=== PATIENT | male | born 1965 | race Caucasian/White ===

== ENCOUNTER 2017-06-28 05:30 | Outpatient (CLI) | payer OTHER ==
[~2017-06-28] VITALS: Ht 185.4 cm; Wt 97.5 kg
== END 2017-06-28 09:39 ==
LOC: PREOP 05:30
PROVIDERS: ATTEND Surgery
DX: Z01.818 Encounter for other preprocedural examination (principal); Z12.11 Encounter for screening for malignant neoplasm of colon

== ENCOUNTER 2017-07-03 07:22 | Day surgery (SDC) | payer OTHER ==
[~2017-07-03] VITALS: Ht 185.4 cm; Wt 97.5 kg
--- OUTSIDE RECORDS SUMMARY | 2017-07-03 07:26 | XMS REPORT | Continuity of Care Document ---
Author Author [facility] Address Unknown Phone Unavailable Allergies Medications Problems Procedures Results Encounters ACCT No. Visit Date/Time Discharge Status Pt. Type Provider Facility Loc./Unit Complaint [id number] 10/20/2014 16:34:15 10/20/2014 23: 59:59 CLS Outpatient Amirah Ford
[2017-07-03] MEDS ORDERED: LACTATED RINGERS 1,000 ML IV STA (07:29)
[2017-07-03] MEDS ORDERED: PROPOFOL INJECTION 50 ML IV ONE (07:30)
[2017-07-03] MEDS ORDERED: MIDAZOLAM 2 MG/2 ML (VERSED) VIAL ONE (07:30)
[2017-07-03 08:02] VITALS: BP 142/99
--- NOTE | 2017-07-03 08:20 | Progress Note-Post Operative ---
Post-Operative Progess Note Surgeon (s)/Sheather (s) Surgeon ALIREZA STARR DO Sheather: na Pre-Operative Diagnosis screening Post-Operative Diagnosis diverticulosis, hemorrhoids Procedure & Operative Findings Date of Procedure 07/03/17 Procedure Performed/Findings colonoscopy Anesthesia Type per population geneticist Estimated Blood Loss Estimated blood loss (mL): none Specimens/Packing Specimens Removed na ALIREZA STARR DO Jul 03, 2017 8:20 am
--- NOTE | 2017-07-03 08:24 | Discharge Inst-Simple/Standard ---
Discharge Inst-Standard Patient Instructions/Follow Up Plan of Care/Instructions/FU: repeat colonoscopy 10 years unless family history of colon cancer which would then be 5 years. Any problems before that be re-evaluated at that time. Activity as Tolerated: Yes Discharge Diet: Regular Diet ALIREZA STARR DO Jul 03, 2017 8:24 am
[2017-07-03 08:25] VITALS: BP 117/82
[2017-07-03 08:40] VITALS: BP 142/99
[2017-07-03 08:52] VITALS: BP 142/99
--- NOTE | 2017-07-03 19:24 | OPERATIVE REPORT ---
DATE OF SERVICE: 07/03/2017 PREOPERATIVE DIAGNOSIS: Screening colonoscopy. POSTOPERATIVE DIAGNOSIS: Diverticulosis and hemorrhoids. PROCEDURE: Colonoscopy. SURGEON: Alireza Wild DO ANESTHESIA: Per LANCE CREWMEMBER/MLRS SERGEANT. ESTIMATED BLOOD LOSS: None. COMPLICATIONS: None. INDICATIONS: The patient is a 52-year-old male due for screening colonoscopy. He understands risks and benefits of procedure and wished to proceed with procedure. Consent was signed and on the chart. DESCRIPTION OF PROCEDURE: The patient was taken to the endoscopy suite, placed in left lateral recumbent position. Timeout was performed. Digital rectal exam was performed and there were no palpable polyps, masses or ulcerations. Some slight hemorrhoidal disease. The scope was inserted in the rectum and advanced all the way to the cecum with minimal difficulty. Prep was adequate. Scope was slowly retracted back. There were no polyps, masses or ulcerations in the cecum, ascending, transverse and descending colon. Within the sigmoid colon, there was a moderate amount of diverticulosis present. No polyps, masses or ulcerations. Scope was continued slowly retracted back into the rectum where it was also retroflexed noting the slight hemorrhoidal disease. No other pathology noted. Scope was returned to its normal position, slowly withdrawn until completely removed. The patient tolerated procedure well without any complications and was taken to the recovery room in stable condition. RECOMMENDATIONS: The patient will need repeat colonoscopy in 10 years unless family history of colon cancer which would then be 5 years. If he has any problems prior to that, he should be reevaluated at that time. The patient with diverticulosis would recommend high fiber diet. If patient has any other problems he should be reevaluated at that time. Otherwise, follow up on next colonoscopy. Job ID: [id number] DocumentID: [id number] Dictated Date: 07/03/2017 08:26:57 Drop Count Associate Date: 07/03/2017 19:23:17 Dictated By: ALIREZA WILD DO
== END 2017-07-03 08:50 | disposition home or self-care (01) ==
LOC: ENDO 07:22
PROVIDERS: ATTEND Surgery
DX: Z12.11 Encounter for screening for malignant neoplasm of colon (principal); K57.30 Diverticulosis of large intestine without perforation or abscess without bleeding; K64.9 Unspecified hemorrhoids

== ENCOUNTER → 2022-02-17 | Outpatient (CLI) | payer OTHER ==
[~2022-02-17] MED LIST: CATHETER FLUSH 10 ML SYR IV PRN; HOLD METFORMIN - RECEIVED CONTRAST 20 ML VIAL IV SCH; IOHEXOL 350 MG/ML 100 ML (OMNIPAQUE 350) VIAL IV ONE; NS 100 ML (IVPB) BAG IV ONE
--- NOTE | 2022-02-17 10:05 | Diagnostic Imaging Report ---
PROCEDURE: CT abdomen and pelvis with contrast. TECHNIQUE: Multiple contiguous axial images were obtained through the abdomen and pelvis after administration of intravenous contrast. Auto Exposure Controls were utilized during the CT exam to meet ALARA standards for radiation dose reduction. All CT scans use one or more of the following dose optimizing techniques: automated exposure control, MA and/or KvP adjustment based on patient size and exam type or iterative reconstruction. INDICATION: Umbilical hernia. No prior studies are available for comparison. FINDINGS: Imaging through lung bases show some linear scarring or atelectasis in the left lower lobe. There are several tiny low-attenuation lesions within the liver, too small to characterize but most likely cysts. Gallbladder is unremarkable. There is no biliary ductal dilatation. Pancreas and spleen are unremarkable. No adrenal mass is detected. Kidneys are unremarkable. Aorta is nonaneurysmal. There is a fat-containing umbilical hernia. There appears to be some abdominal wall laxity as well in the supraumbilical location but no discrete abdominal wall defect is identified. The bowel loops are normal caliber. There is no obstruction. There is diverticulosis of the descending and sigmoid colon but no evidence of acute diverticulitis. No free fluid or fluid collection is seen. The bladder is unremarkable. Prostate does appear to be enlarged. There is a fat-containing right inguinal hernia. Bony structures appear intact. IMPRESSION: 1. Probable hepatic cysts. 2. Uncomplicated diverticulosis. 3. Fat-containing umbilical hernia. There is also a supraumbilical abdominal wall laxity but no discrete abdominal wall defect or herniated bowel is detected. 4. Prostatomegaly. Dictated by: Dictated on workstation # [id number]
== END ==
LOC: RAD 09:45
PROVIDERS: ATTEND Surgery
DX: K42.9 Umbilical hernia without obstruction or gangrene (principal); K57.30 Diverticulosis of large intestine without perforation or abscess without bleeding; N40.0 Benign prostatic hyperplasia without lower urinary tract symptoms
CPT/HCPCS: 74177